=== PATIENT | female | born 1995 | race Caucasian/White ===

== ENCOUNTER 2016-03-22 15:25 | Observation (INO) | payer OTHER ==
[~2016-03-22] VITALS: Ht 170.2 cm; Wt 86.2 kg
[~2016-03-22 15:25] MED LIST: PREN1TAB80 PO
[2016-04-24] MEDS ORDERED: IRON18TA PO (11:22)
[2016-04-24 11:36] VITALS: BP 118/69
== END 2016-04-24 12:05 | disposition home or self-care (01) ==
LOC: 4S 04-24 11:15
PROVIDERS: ADMIT Obstetrics & Gynecology; ATTEND Obstetrics & Gynecology
DX: O62.9 Abnormality of forces of labor, unspecified (principal); Z3A.39 39 weeks gestation of pregnancy
CPT/HCPCS: 59025; G0378

== ENCOUNTER 2016-04-26 08:52 | Inpatient (IN) | payer OTHER ==
[~2016-04-26] VITALS: Ht 170.2 cm; Wt 89.8 kg
[~2016-04-26 08:52] MED LIST changes: +IRON18TA PO
[2016-04-26] MEDS ORDERED: OXYTOCIN 30 UNITS/LACT RINGERS 500 ML IV PRN (09:31)
[2016-04-26] MEDS ORDERED: RINGERS SOLUTION,LACTATED 1,000 ML IV PRN (09:31)
[2016-04-26] MEDS ORDERED: CITRIC ACID/SODIUM CITRATE 30 ML SOLUTION UDCUP PO PRN (09:45)
[2016-04-26] MEDS ORDERED: METOCLOPRAMIDE HCL 5 MG/ML 2 ML VIAL IVP PRN (09:45)
[2016-04-26] MEDS: RINGERS SOLUTION,LACTATED 1,000 ML IV SCH ×3 (09:59→22:25)
[2016-04-26 10:01] LABS: BASOPHILS % (AUTO) 0.2 % (0.0-2.0); EOSINOPHILS % (AUTO) 1.6 % (1.0-6.0); HEMATOCRIT 36.5 % (36-46); LYMPHOCYTES % (AUTO) 16.3 % (22.0-44.0); MEAN CORPUSCULAR HEMOGLOBIN 29.1 pg (26.0-34.0); MEAN CORPUSCULAR VOLUME 88 fL (80-100); MONOCYTES # (AUTO) 0.9 K/uL (0.1-1.0); MONOCYTES % (AUTO) 7.7 % (2.0-9.0); NEUTROPHILS % (AUTO) 74.2 % (40.0-70.0); RED BLOOD CELL COUNT(AUTO) 4.14 MIL/uL (4.00-5.20); RED CELL DISTRIBUTION WIDTH 13.2 % (11.5-14.5); WHITE BLOOD COUNT (AUTO) 12.2 K/uL (4.5-11.0)
[2016-04-26] MEDS: FentaNYL CITRATE-PF 100 MCG/2 ML VIAL IVP PRN ×5 (11:12→17:11)
[2016-04-26] MEDS ORDERED: BUPIVACAINE HCL/PF 0.25% 10 ML VIAL ONE (17:30)
[2016-04-26] MEDS ORDERED: FentaNYL/BUPIV 0.125%/NS/PF 200 ML ED ONE (17:30)
[2016-04-26] MEDS ORDERED: LIDOCAINE HCL/PF 2% 5 ML VIAL ONE (17:30)
[2016-04-26] MEDS ORDERED: FentaNYL/BUPIV 0.125%/NS/PF 200 ML ED PRN (19:20)
[2016-04-26] MEDS ORDERED: ONDANSETRON HCL 4 MG/2 ML VIAL IVP PRN (19:30)
[2016-04-26] MEDS ORDERED: AMPICILLIN SODIUM 2 GM/NS 100 ML IV ONE (19:30)
[2016-04-26] MEDS ORDERED: PROMETHAZINE HCL 12.5 MG in SODIUM CHLORIDE 0.9% 50 ML IV PRN (19:30)
[2016-04-26] MEDS ORDERED: NALBUPHINE HCL 10 MG/ML VIAL IVP PRN ×2 (19:30)
[2016-04-26] MEDS ORDERED: DiphenhydrAMINE HCL 50 MG/ML VIAL IVP PRN (19:30)
[2016-04-26] MEDS ORDERED: OXYGEN THERAPY IH SCH (20:00)
[2016-04-26] MEDS ORDERED: MISOPROSTOL 100 MCG TABLET ONE (23:56)
[2016-04-27] MEDS ORDERED: AMPICILLIN SODIUM 1 GM/NS 50 ML IV SCH
[2016-04-27] MEDS ORDERED: METHYLERGONOVINE MALEATE 0.2 MG/ML VIAL IM ONE
[2016-04-27] MEDS ORDERED: MISOPROSTOL 100 MCG TABLET PR ONE
[2016-04-27] MEDS ORDERED: FentaNYL CITRATE-PF 100 MCG/2 ML VIAL IVP ONE (00:03)
[2016-04-27] MEDS ORDERED: LIDOCAINE HCL/PF 1% 30 ML VIAL ONE (00:05)
[2016-04-27] MEDS ORDERED: OxyCODONE HCL/ACETAMINOPHEN 5-325 MG TABLET PO PRN ×2 (00:30)
[2016-04-27] MEDS ORDERED: IBUPROFEN 800 MG TABLET PO PRN (00:30)
[2016-04-27] MEDS ORDERED: LANOLIN 7 GM OINTMENT TP PRN (00:30)
[2016-04-27] MEDS ORDERED: BENZOCAINE 20%/MENTHOL 56 GM SPRAY CANISTER TP PRN (00:30)
[2016-04-27] MEDS ORDERED: OXYTOCIN 30 UNITS/LACT RINGERS 500 ML IV ONE (00:30)
[2016-04-27] MEDS ORDERED: GLYCERIN/WITCH HAZEL LEAF 40 PADS JAR TP PRN (00:30)
[2016-04-27] MEDS ORDERED: LIDOCAINE HCL/PF 1% 30 ML VIAL INJ PRN (00:30)
[2016-04-27] MEDS: MAGNESIUM HYDROXIDE SUSPENSION 30 ML UDCUP PO PRN ×2 (09:33→21:19)
[2016-04-28 06:44] LABS: BASOPHILS % (AUTO) 0.3 % (0.0-2.0); EOSINOPHILS % (AUTO) 1.4 % (1.0-6.0); HEMATOCRIT 30.7 % (36-46); HEMOGLOBIN 9.9 g/dL (12.0-16.0); LYMPHOCYTES % (AUTO) 20.9 % (22.0-44.0); MEAN CORPUSCULAR HEMOGLOBIN 28.8 pg (26.0-34.0); MEAN CORPUSCULAR HGB CONC 32.3 G/dL (31.0-37.0); MEAN CORPUSCULAR VOLUME 89 fL (80-100); MONOCYTES # (AUTO) 1.1 K/uL (0.1-1.0); NEUTROPHILS # (AUTO) 9.9 K/uL (1.8-7.7); NEUTROPHILS % (AUTO) 69.4 % (40.0-70.0); RED BLOOD CELL COUNT(AUTO) 3.45 MIL/uL (4.00-5.20); RED CELL DISTRIBUTION WIDTH 13.5 % (11.5-14.5); WHITE BLOOD COUNT (AUTO) 14.2 K/uL (4.5-11.0)
[2016-04-28] MEDS ORDERED: IBUP-2070 PO (08:57)
[2016-04-28] MEDS ORDERED: DSS100 PO (08:58)
[2016-04-28] MEDS ORDERED: FERR-89 PO (08:59)
== END 2016-04-28 09:50 | disposition home or self-care (01) | DRG 560 ==
LOC: OBSVTOIN 08:52 → 4S 08:52
PROVIDERS: ADMIT Obstetrics & Gynecology; ATTEND Obstetrics & Gynecology
PROC: 10E0XZZ Delivery of Products of Conception, External Approach (ICD-10-PCS; principal; 2016-04-26)
PROC: 0KQM0ZZ Repair Perineum Muscle, Open Approach (ICD-10-PCS; 2016-04-26)
PROC: 3E0S3CZ (ICD-10-PCS; 2016-04-26)
PROC: 00HU33Z Insertion of Infusion Device into Spinal Canal, Percutaneous Approach (ICD-10-PCS; 2016-04-26)
DX: O77.0 Labor and delivery complicated by meconium in amniotic fluid (principal); O62.2 Other uterine inertia; O70.1 Second degree perineal laceration during delivery; Z3A.39 39 weeks gestation of pregnancy; Z37.0 Single live birth
CPT/HCPCS: J0290; J2590; J3010; J3490; J7120